=== PATIENT | male | born 1960 | race Caucasian/White ===

== ENCOUNTER → 2017-10-27 15:56 | Outpatient (CLI) | payer OTHER, SELFPAY ==
[2017-10-27 17:40] LABS: AST(SGOT) 12 U/L (15-37); Alanine Aminotransfer ALT/SGPT 23 U/L (16-61); Albumin, Serum 3.6 g/dL (3.2-5.0); Alkaline Phosphatase 87 U/L (45-117); Anion Gap 6 (5-15); BUN 10 mg/dL (7-18); BUN/Creat Ratio 13.5 RATIO (10-20); Chloride 104 mmol/L (98-107); Creatinine, Serum 0.74 mg/dL (0.70-1.30); EST Glomerular Filtration Rate 116 mL/min (>60); Est Glom Filt Rate - Afr Amer 140 mL/min (>60); Globulin 3.5 g/dL (2.2-4.2); Glucose 119 mg/dL (74-106); Potassium 3.5 mmol/L (3.5-5.1); Protein, Total 7.1 g/dL (6.4-8.2); Sodium Level 141 mmol/L (136-145)
== END ==
PROVIDERS: Family Provider Family Medicine; PCP Family Medicine; Visit Provider Nurse Practitioner
DX: E11.9 Type 2 diabetes mellitus without complications (principal)
CPT/HCPCS: 36415; 80053; 83036

== ENCOUNTER 2019-01-30 14:28 | Emergency (ER) | payer OTHER, SELFPAY ==
[2018-08-10 10:30] VITALS: BMI 29.6
[2019-01-30 14:29] VITALS: BP 131/72; PULSE 82; RESP 18; TEMP 36.6; O2SAT 98; BMI 29.2
--- NOTE | 2019-01-30 15:08 | CT_ITS ---
We are attempting to reach an attending provider to discuss findings. An addendum with communication details will be sent when the communication is complete. STUDY: CT ABDOMEN AND PELVIS WITH CONTRAST REASON FOR EXAM: Male, 58 years old. Abdomen pain and rectal bleeding RADIATION DOSAGE (If Supplied By Facility): CTDIvol = ( ) mGy, DLP = ( ) mGycm TECHNIQUE: Transaxial images were obtained from the dome of the diaphragm to the symphysis pubis without oral contrast. 100 IV Isovue 300 was administered. Sagittal and coronal images were reconstructed. Individualized dose optimization techniques were used for this CT. COMPARISON: None. FINDINGS: The visualized lung bases are unremarkable. The visualized portions of the heart are within normal limits. The liver is mildly enlarged fatty infiltrated. Normal gallbladder and extrahepatic biliary system. Normal spleen. Normal pancreas. Normal bilateral adrenal glands. Normal right kidney. Normal left kidney. There is a small hiatal hernia. There is a thick walled appearance of the stomach even though it is decompressed the wall appears thickened up to 3 cm. There is a small second part duodenal diverticulum measuring 8.9 mm at the level of the pancreas. There is moderate stool within the proximal large bowel. There is a segment of focal colonic edema. Colonic inflammation within the fat inflammation of the diverticula compatible with a focus of descending colon diverticulitis. There is a thick-walled appearance of the adjacent intra-abdominal wall fascia. The appendix is visualized and appears normal. There is trace calcification of the aorta. Normal inferior vena cava. There is small subcentimeter mesenteric and respiratory lymph nodes. The bladder is distended. The bladder measures 12 x 13 x 9 cm. Normal visualized prostate gland. There is a small umbilical hernia containing fat. There are diffuse degenerative changes of the visualized lumbar spine. CT/Abdomen/Pelvis W IV Cont ONLY IMPRESSION: Descending colon acute diverticulitis without distended abscess formation or pneumoperitoneum. This is over a segment of approximately 8 to 10 cm. Small duodenal diverticulum. Thick-walled appearance of the stomach recommend consideration for follow-up study such as endoscopy. Overdistended bladder recommend voiding or catheterization. Mild hepatic steatosis. Electronically Signed: Lisa Quezada MD at 16:29 EDT Tel , Service support ,
[2019-01-30] MEDS: Ondansetron 4 MG/2 ML Vial IV (15:17)
[2019-01-30] MEDS: 0.9% Normal Saline 1,000 ML 125 ML IV (15:17)
[2019-01-30] MEDS: Morphine 4 MG/ML Syringe IV (15:17)
[2019-01-30 15:23] LABS: Bacteria 0 SEEN /hpf (None Seen); Mucous, Urine 0 SEEN /hpf (<or=2+); Red Blood Cells-Urine 0 SEEN /hpf (0-5); White Blood Cells 0 SEEN /hpf (0-5)
[2019-01-30 15:27] LABS: Color, Urine Yellow (Yellow); Glucose, Dipstick 250 mg/dl (Normal); Ketone-Dipstick Negative (Negative); Leukocyte Esterase-Dipstick Negative /ul (Negative); Nitrite-Dipstick Negative (Negative); Occult Blood-Urine Negative /ul (Negative); Protein-Dipstick Negative (Negative); Specific Gravity, Urine 1.005 (1.002-1.030); Urine Bilirubin Dipstick Negative (Negative); Urine Clarity Sl. Cloudy (Clear); Urine Urobilinogen Normal (Normal); Urine pH 6.5 (5.0 - 8.0)
--- NOTE | 2019-01-30 15:27 | ED.DCSUM_ITS ---
- ER Visit Summary Date of Service: 01/30/19 Chief Complaint: [Rectal bleeding and abdominal pain History of Present Illness: The patient is a 58 M [presents the emergency department with abdominal pain that started this morning. Patient states that about an hour ago started having bright red blood per rectum. Patient had been having diarrhea most of the morning which she did take was too unusual because he has a history of irritable bowel syndrome. Patient continues to have left lower quadrant pain. He denies any fever. He denies urinary symptoms. Patient is never had rectal bleeding before. Patient had a colonoscopy he thinks about 3 or 4 years ago that did not show anything abnormal. Patient has a history of diabetes, GERD, and IBS. No prior abdominal surgeries. No history of diverticulosis.] Physical Examination: [HEENT-PERRLA, EOMI. Cranial nerves II through XII grossly intact. TMs clear. Mucous membranes moist. No adenopathy. Cardiovascular-regular rate and rhythm without murmur or ectopy Lungs-clear to auscultation, chest wall stable without crepitus or subcu emphysema Abdomen-normoactive bowel sounds, soft. Patient has tenderness palpation over left lower quadrant with some guarding. There is no rebound, rigidity, or perineal signs. Rectal exam-there was brown stool that was Hemoccult positive. No rectal fissures or hemorrhoids noted no rectal masses palpated. Extremities-intact ?4, normal range of motion, normal pulses, atraumatic] Test Results: [CBC with peripheral count 17.6, hemoglobin 15, hematocrit 43, placed 251. Chemistries unremarkable. Urinalysis was normal. Hemoccult was positive.] CT scan of the abdomen pelvis with IV contrast showed acute diverticulitis and some thickening of the stomach. There is no abscess or perforation noted. Emergency Department Course and Treatment: [Was ordered and morphine and Zofran on presentation and given normal saline. Patient was ordered Cipro and Flagyl IV. Patient would prefer to go home and does not want to be admitted. Discussed case with general surgeon on-call for follow-up.] Treatment Plan: [Follow-up with general surgeon in 3 to 5 days. Patient advised to return if worsening pain, fever, persistent heavy bleeding, dizziness, or conditions worsen anyway.] Disposition: [Discharged home in stable condition] Impression: [Acute diverticulitis Lower GI bleed-stable] This note was generated with Dragon dictation software. It may contain incorrect words, spelling, and punctuation that were not noted in review of the chart pr ior to signing ED Disposition - Plan for ED Patient: Referrals: Gilmer Lovett MD [Primary Care Provider] -
[2019-01-30 15:30] LABS: Absolute Lymphocyte Count 3.89 X10^3/ul (0.83-4.51); Basophil# 0.06 X10^3/uL; Basophil% 0.3 % (0-1); Eosinophils% 1.7 % (0-5); Hematocrit 43.1 % (40-54); Hemoglobin 15.1 g/dl (13.0-16.5); Lymphocyte # 3.89 X10^3/ul (4.0); Lymphocyte % 22.1 % (19-41); Mean Corpuscular Hgb 30.8 pg (27.0-32.0); Mean Platelet Vol. 10.4 fl (6.2-12.0); Monocyte# 1.31 X10^3/uL; Monocyte% 7.5 % (0-10); Neutrophil # 11.96 X10^3/uL (2.7-7.7); Neutrophil % 68.1 % (47-70); Platelet Count 251 K/mm3 (150-450); RBC Distribution Width SD 41.7 fl (35.1-43.9); White Blood Count 17.6 K/mm3 (4.4-11.0)
[2019-01-30 15:32] LABS: POSITIVE COUNT NO; POSITIVE DIFFERENTIAL NO; POSITIVE MORPHOLOGY NO
[2019-01-30 15:34] LABS: Anion Gap 6 (5-15); BUN 10 mg/dL (7-18); BUN/Creat Ratio 10.5 RATIO (10-20); Chloride 101 mmol/L (98-107); Creatinine, Serum 0.95 mg/dL (0.70-1.30); EST Glomerular Filtration Rate 86 mL/min (>60); Est Glom Filt Rate - Afr Amer 104 mL/min (>60); Estimated Creatinine Clearance 90.27 ml/min; Glucose 242 mg/dL (74-106); Potassium 3.6 mmol/L (3.5-5.1); Sodium Level 135 mmol/L (136-145)
[2019-01-30 15:40] LABS: Squamous Epithelial Cells - UA 0-5 SEEN /hpf (0-5)
[2019-01-30 16:12] LABS: Lactic Acid 1.3 mmol/L (0.4-2.0)
[2019-01-30 16:13] VITALS: PULSE 84; RESP 18; O2SAT 97
--- NOTE | 2019-01-30 16:58 | ED.DEP ---
ED Disposition - Plan for ED Patient: Instructions: ED Hematochezia Stable, ED Diverticulitis Prescriptions: Hydrocodone Bitart/Apap 5-325 [[place] 5MG-325MG] 1 tab PO Q4H PRN PRN 2 Days #10 tab PRN Reason: Pain metroNIDAZOLE [Flagyl] 500 mg PO Q8H #30 tab Ciprofloxacin [Cipro] 500 mg PO BID #20 tab Referrals: Gilmer Lovett MD [Primary Care Provider] - Alessandro French MD [STAFF PHYSICIAN] - 3-5 Days
[2019-01-30 17:03] VITALS: BP 130/72; PULSE 88; RESP 18; O2SAT 98
[2019-01-30] MEDS: metroNIDAZOLE 500 MG/100 ML BAG 100 MG IV (17:10)
[2019-01-30] MEDS: Ciprofloxacin 400 MG/200 ML BAG 200 MG IV (18:24)
[2019-01-30 18:45] VITALS: BP 132/80; PULSE 88; RESP 18; O2SAT 99
== END 2019-01-30 19:32 | disposition home or self-care (01) ==
LOC: ED 15:13
PROVIDERS: Emergency Provider Emergency Medicine; Family Provider Family Medicine; PCP Family Medicine
DX: K57.93 Diverticulitis of intestine, part unspecified, without perforation or abscess with bleeding (principal); E11.9 Type 2 diabetes mellitus without complications; K21.9 Gastro-esophageal reflux disease without esophagitis; K58.9 Irritable bowel syndrome, unspecified; Z72.0 Tobacco use
CPT/HCPCS: 74177; 80048; 81001; 82274; 83605; 85025; 86850; 86900; 96361; 96365; 96367; 96375; 99284; J7030; J7050; Q9967; A4216; J0744; J2405

== ENCOUNTER 2019-03-22 09:50 | Day surgery (SDC) | payer OTHER, SELFPAY ==
--- NOTE | 2019-02-08 01:46 | HP_ITS ---
Intake Vital Signs 02/08/19 Body Mass Index (BMI) 29.2 02/08/19 Height 5 ft 11.75 in 02/08/19 Weight: 209 lb 2 oz 02/08/19 Body Mass Index (BMI) 28.5 02/08/19 Blood Pressure 112/63 02/08/19 Blood Pressure Location Rt brachial 02/08/19 Respiratory Rate 16 02/08/19 Pulse Rate 79 02/08/19 Pulse Source Monitor 02/08/19 Temperature 98.2 F 02/08/19 Pulse Ox 97 02/08/19 Oxygen Delivery Method room air Intake Visit Reasons: DIVERTICULITIS Hazardous Waste Management Specialist Required: No Accompanied by: Is patient in pain?: No Allergies No Known Allergies Allergy (Verified 01/30/19 14:31) Medications aspirin 81 mg tablet,delayed release 81 mg PO QDAY 09/14/17 [History Confirmed 02/08/19] multivit with minerals-folic acid-lycopene 0.4 mg-600 mcg tablet 1 tab PO DAILY 09/14/17 [History Confirmed 02/08/19] omega-3 fatty acids 1,000 mg capsule 1,000 mg PO QDAY 09/14/17 [History Confirmed 02/08/19] sitagliptin 100 mg tablet 100 mg PO DAILY #30 tab 08/10/18 [Rx Confirmed 02/08/19] Ciprofloxacin [Cipro] 500 mg PO BID #20 tab 01/30/19 [Rx Confirmed 02/08/19] Colestipol Tablet [Colestid Tablet] 2 gm PO BID 01/30/19 [History Confirmed 02/08/19] Ezetimibe [Zetia] 10 mg PO DAILY 01/30/19 [History Confirmed 02/08/19] Insulin Glargine,Hum.rec.anlog [Basaglar Kwikpen U-100] 60 unit SQ QHS 01/30/19 [History Confirmed 02/08/19] Lisinopril [Zestril] 2.5 mg PO DAILY 01/30/19 [History Confirmed 02/08/19] Omeprazole 40 mg PO DAILY 01/30/19 [History Confirmed 02/08/19] metroNIDAZOLE [Flagyl] 500 mg PO Q8H #30 tab 01/30/19 [Rx Confirmed 02/08/19] cholecalciferol (vitamin D3) 2,000 unit tablet 2,000 unit PO DAILY 02/08/19 [History Confirmed 02/08/19] [facility] Medical History (Updated 02/08/19 @ 13:43 by Alessandro French MD) Diabetes type 2, controlled (Acute) Erectile dysfunction (Acute) GERD (gastroesophageal reflux disease) (Acute) IBS (irritable bowel syndrome) (Acute) Vision impairment (Acute) Surgical History (Updated 10/27/17 @ 15:05 by Gregoria Matute) endoscopy with dilation of esophagus (Acute) Family History (Updated 02/08/19 @ 13:10 by Snowamairani Smith) Unknown Diabetes Father Diabetes CVA (cerebral vascular accident) Mother Diabetes Sister Breast cancer Social History (Updated 02/08/19 @ 13:46 by Alessandro French MD) Smoking Status: Former smoker second hand exposure: No alcohol intake: never substance use type: does not use HPI HPI HPI: MELISSA MORFIN, is a 58 M who presents to the office today for HPI HPI Surgical H&P: Yes HPI: MELISSA MORFIN, is a 58 M who presents to the office today for diverticulitis. The patient was recently in the emergency room with a white count of 17 and left lower quadrant pain of one day duration. This subsided once he started on antibiotics. He is having no pain at this time. His pain was in the left lower quadrant. On CT scan he also had moderate thickening of the stomach. He has no epigastric pain. ROS General General: Yes fatigue; no weight change, appetite, colon cancer, breast cancer or weakness HEENT HEENT: No difficulty swallowing, eye injury, eye surgery, swollen glands or hoarseness Endo Endocrine: Yes diabetes mellitus; no thyroid disease, thyroid cancer, Hair loss, heat intolerance or cold intolerance Skin Skin: No rash or changing moles Musc Musculoskeletal: No back problems, arthritis, rheumatoid arthritis, gout or joint pain Cardio Cardiovascular: No murmur, pacemaker, heart disease, atrial fibrillation, high blood pressure, heart attack, heart stent, palpitations, shortness of breat with exertion or chest pain Psych Psychiatric: No depression, anxiety or hearing voices Resp Respiratory: No shortness of breath, No sleep apnea, No cough, No COPD, No asthma, No emphysema, No wheezing Gastro Gastrointestinal: No abdominal pain, No nausea or vomiting, Yes diarrhea, No constipation, Yes blood in stool, Yes acid reflux, No hemorrhoids, No ulcers, No gallbladder problem, No black,tarry stools Domingo Hematologic: No blood thinners, No blood disorders, No bleeding, No anemia, No blood clots Neuro Neurologic: No system reviewed and no additional complaints, except as docu, No as per HPI, No abnormal walking, No abnormal hearing, No abnormal movements, No abnormal speech, No behavioral changes, No burning sensations, No confusion, No seizure-like activity, No unsteadiness, No dizziness, No localized weakness, No frequent falls, No headache(s), No lack of coordination, No loss of vision, No memory loss, No numbness, No other visual disturbances, No radiating pain, No restless legs, No sensory deficit, No fainting, No tingling, No tremor(s), No weakness, No other Exam Const General: cooperative Orientation: alert, oriented x3 Resp Effort & Inspection: normal respiratory effort Auscultation: clear to auscultation bilaterally Cardio Rate: regular rate Rhythm: regular rhythm Heart Sounds: no murmurs GI Inspection: non-distended Palpation: soft, nontender Assessment & Plan Problems 1. Gastric wall thickening K31.89 2. Diverticular disease K57.90 Plan The patient has moderate thickening of the stomach wall. I will perform an EGD while I perform the colonoscopy Patient has diverticulitis. Her last colonoscopy was 4 years ago. He also had blood in his stool. I recommend colonoscopy once this has healed. I explained endoscopy in detail to the patient. I explained the risks including but not limited to stroke or heart attack with anesthesia, perforation of the GI tract, bleeding, infection. I explained that any of these could necessitate further emergency surgery. The patient understands and all questions were answered sufficiently. The patient wishes to proceed with procedure. Alessandro French MD Pager: [facility] [address] [place] [address], [address] [place] [address] Office: Orders Orders: Colonoscopy Today K57.90 EGD Today K31.89 Coding Level of Care Code Off vis,new,level 3 Diagnoses Gastric wall thickening K31.89 Diverticular disease K57.90 02/08/19 5114 <Electronically signed by Alessandro mariscal MD> Date _ Alessandro HUGGINS I have re-examined the patient. There are no clinical changes since date of exam.
[2019-02-08 13:18] VITALS: BMI 29.2
[2019-03-22] VITALS (9 sets, daily range): BP systolic 82–128; BP diastolic 60–75; PULSE 58–62; RESP 16–18; TEMP 36.2–36.4; O2SAT 92–98; BMI 27.8
--- NOTE | 2019-03-22 09:58 | HP_ITS ---
Intake Vital Signs 02/08/19 Body Mass Index (BMI) 29.2 02/08/19 Height 5 ft 11.75 in 02/08/19 Weight: 209 lb 2 oz 02/08/19 Body Mass Index (BMI) 28.5 02/08/19 Blood Pressure 112/63 02/08/19 Blood Pressure Location Rt brachial 02/08/19 Respiratory Rate 16 02/08/19 Pulse Rate 79 02/08/19 Pulse Source Monitor 02/08/19 Temperature 98.2 F 02/08/19 Pulse Ox 97 02/08/19 Oxygen Delivery Method room air Intake Visit Reasons: DIVERTICULITIS Staff Certified Nurse Midwife Required: No Accompanied by: Is patient in pain?: No Allergies No Known Allergies Allergy (Verified 01/30/19 14:31) Medications aspirin 81 mg tablet,delayed release 81 mg PO QDAY 09/14/17 [History Confirmed 02/08/19] multivit with minerals-folic acid-lycopene 0.4 mg-600 mcg tablet 1 tab PO DAILY 09/14/17 [History Confirmed 02/08/19] omega-3 fatty acids 1,000 mg capsule 1,000 mg PO QDAY 09/14/17 [History Confirmed 02/08/19] sitagliptin 100 mg tablet 100 mg PO DAILY #30 tab 08/10/18 [Rx Confirmed 02/08/19] Ciprofloxacin [Cipro] 500 mg PO BID #20 tab 01/30/19 [Rx Confirmed 02/08/19] Colestipol Tablet [Colestid Tablet] 2 gm PO BID 01/30/19 [History Confirmed 02/08/19] Ezetimibe [Zetia] 10 mg PO DAILY 01/30/19 [History Confirmed 02/08/19] Insulin Glargine,Hum.rec.anlog [Basaglar Kwikpen U-100] 60 unit SQ QHS 01/30/19 [History Confirmed 02/08/19] Lisinopril [Zestril] 2.5 mg PO DAILY 01/30/19 [History Confirmed 02/08/19] Omeprazole 40 mg PO DAILY 01/30/19 [History Confirmed 02/08/19] metroNIDAZOLE [Flagyl] 500 mg PO Q8H #30 tab 01/30/19 [Rx Confirmed 02/08/19] cholecalciferol (vitamin D3) 2,000 unit tablet 2,000 unit PO DAILY 02/08/19 [History Confirmed 02/08/19] [facility] Medical History (Updated 02/08/19 @ 13:43 by Alessandro French MD) Diabetes type 2, controlled (Acute) Erectile dysfunction (Acute) GERD (gastroesophageal reflux disease) (Acute) IBS (irritable bowel syndrome) (Acute) Vision impairment (Acute) Surgical History (Updated 10/27/17 @ 15:05 by Gregoria Matute) endoscopy with dilation of esophagus (Acute) Family History (Updated 02/08/19 @ 13:10 by Snowamairani Smith) Unknown Diabetes Father Diabetes CVA (cerebral vascular accident) Mother Diabetes Sister Breast cancer Social History (Updated 02/08/19 @ 13:46 by Alessandro French MD) Smoking Status: Former smoker second hand exposure: No alcohol intake: never substance use type: does not use HPI HPI HPI: MELISSA MORFIN, is a 58 M who presents to the office today for HPI HPI Surgical H&P: Yes HPI: MELISSA MORFIN, is a 58 M who presents to the office today for diverticulitis. The patient was recently in the emergency room with a white count of 17 and left lower quadrant pain of one day duration. This subsided once he started on antibiotics. He is having no pain at this time. His pain was in the left lower quadrant. On CT scan he also had moderate thickening of the stomach. He has no epigastric pain. ROS General General: Yes fatigue; no weight change, appetite, colon cancer, breast cancer or weakness HEENT HEENT: No difficulty swallowing, eye injury, eye surgery, swollen glands or hoarseness Endo Endocrine: Yes diabetes mellitus; no thyroid disease, thyroid cancer, Hair loss, heat intolerance or cold intolerance Skin Skin: No rash or changing moles Musc Musculoskeletal: No back problems, arthritis, rheumatoid arthritis, gout or joint pain Cardio Cardiovascular: No murmur, pacemaker, heart disease, atrial fibrillation, high blood pressure, heart attack, heart stent, palpitations, shortness of breat with exertion or chest pain Psych Psychiatric: No depression, anxiety or hearing voices Resp Respiratory: No shortness of breath, No sleep apnea, No cough, No COPD, No asthma, No emphysema, No wheezing Gastro Gastrointestinal: No abdominal pain, No nausea or vomiting, Yes diarrhea, No constipation, Yes blood in stool, Yes acid reflux, No hemorrhoids, No ulcers, No gallbladder problem, No black,tarry stools Domingo Hematologic: No blood thinners, No blood disorders, No bleeding, No anemia, No blood clots Neuro Neurologic: No system reviewed and no additional complaints, except as docu, No as per HPI, No abnormal walking, No abnormal hearing, No abnormal movements, No abnormal speech, No behavioral changes, No burning sensations, No confusion, No seizure-like activity, No unsteadiness, No dizziness, No localized weakness, No frequent falls, No headache(s), No lack of coordination, No loss of vision, No memory loss, No numbness, No other visual disturbances, No radiating pain, No restless legs, No sensory deficit, No fainting, No tingling, No tremor(s), No weakness, No other Exam Const General: cooperative Orientation: alert, oriented x3 Resp Effort & Inspection: normal respiratory effort Auscultation: clear to auscultation bilaterally Cardio Rate: regular rate Rhythm: regular rhythm Heart Sounds: no murmurs GI Inspection: non-distended Palpation: soft, nontender Assessment & Plan Problems 1. Gastric wall thickening K31.89 2. Diverticular disease K57.90 Plan The patient has moderate thickening of the stomach wall. I will perform an EGD while I perform the colonoscopy Patient has diverticulitis. Her last colonoscopy was 4 years ago. He also had blood in his stool. I recommend colonoscopy once this has healed. I explained endoscopy in detail to the patient. I explained the risks including but not limited to stroke or heart attack with anesthesia, perforation of the GI tract, bleeding, infection. I explained that any of these could necessitate further emergency surgery. The patient understands and all questions were answered sufficiently. The patient wishes to proceed with procedure. Alessandro French MD Pager: [facility] [address] [place] [address], [address] [place] [address] Office: Orders Orders: Colonoscopy Today K57.90 EGD Today K31.89 Coding Level of Care Code Off vis,new,level 3 Diagnoses Gastric wall thickening K31.89 Diverticular disease K57.90
[2019-03-22 10:26] LABS: Bedside Glucose 149 mg/dL (70-110)
--- NOTE | 2019-03-22 11:00 | COLBX_PTH ---
PATIENT: MELISSA MORFIN III LOC: EN U#:[id number] AGE/SX: 58/M ROOM: RE03/22/[address]: Dr. Alessandro French MD : 1960 BED: DIS: 03/22/2019 SPEC #: [id number] RECD: 03/22/19 11:23 STATUS: MUNDO EMMANUEL #: [id number] MIKEL: 03/22/19 11:[address]: Alessandro French DEPT: SURGICAL PATHOLOGY RECD BY: Dean Weaver ENTERED: 03/22/19 12:37 SP TYPE: COLON BX OTHR DR: Dr. Gilmer Lovett MD Tissues: Descending colon Procedures: Surgery Specimen Level IV HEADER OPERATION: [place] DIAGNOSIS: Gastric wall thickening, diverticular disease TISSUE SUBMITTED: Descending colon polyp MICROSCOPIC DIAGNOSIS Descending colon polyp, biopsy: Fragments of tubular adenoma. SJ:nakul 03/23/19 MICROSCOPIC DESCRIPTION Slides are reviewed. GROSS DESCRIPTION Received in fixative is one container labeled with the patient's name and designated descending colon polyp. The specimen consists of two irregular fragments of gallardo soft tissue that in aggregate measure 0.5 x 0.3 x 0.2 cm. The specimen is totally submitted in one cassette. / SJ:nakul 03/22/19 TC:1 CPT: 45081
--- NOTE | 2019-03-22 11:04 | OP.ENDO_ITS ---
03/22/2019 Gilmer Lovett Re : Upper GI endoscopy procedure for Jeff Sanchez Dear Rachell This procedure was performed on Friday, March 22, 2019. My impressions and recommendations are as follows: Impressions : - Normal esophagus. - Normal stomach. - Normal examined duodenum. - No specimens collected. Recommendations : - Discharge patient to home. - Resume previous diet. - Continue present medications. My findings are described in the full procedure note, which is enclosed. If I can be of further assistance, please feel free to contact me at Doctor phone number(s): , Work: . Sincerely, Alessandro French MD 03/22/2019 11:03:44 AM This report has been signed electronically.
--- NOTE | 2019-03-22 11:06 | OP.ENDO_ITS ---
03/22/2019 Gilmer Lovett Re : Colonoscopy procedure for Jeff Riversr Rachell This procedure was performed on Friday, March 22, 2019. My impressions and recommendations are as follows: Impressions : - One small polyp in the distal descending colon, removed with a hot snare. Resected and retrieved. - The examination was otherwise normal on direct and retroflexion views. Recommendations : - Discharge patient to home. - Resume previous diet. - Continue present medications. - Physician's office will call you with pathology results and recommendations for when to repeat colonoscopy. - Repeat colonoscopy date to be determined after pending pathology results are reviewed for surveillance based on pathology results. My findings are described in the full procedure note, which is enclosed. If I can be of further assistance, please feel free to contact me at Doctor phone number(s): , Work: . Sincerely, Alessandro French MD 03/22/2019 11:06:03 AM This report has been signed electronically.
== END 2019-03-22 12:03 | disposition home or self-care (01) ==
LOC: EN 09:53 → AC 09:54
PROVIDERS: Family Provider Family Medicine; PCP Family Medicine; Referring Provider Family Medicine; Visit Provider Surgery
PROC: 0DJD8ZZ Inspection of Lower Intestinal Tract, Via Natural or Artificial Opening Endoscopic (ICD-10-PCS; CPT 45378; principal; 2019-03-22 10:55)
DX: D12.4 Benign neoplasm of descending colon (principal); K57.32 Diverticulitis of large intestine without perforation or abscess without bleeding; K31.89 Other diseases of stomach and duodenum; K57.90 Diverticulosis of intestine, part unspecified, without perforation or abscess without bleeding; Z87.891 Personal history of nicotine dependence; E11.9 Type 2 diabetes mellitus without complications; K21.9 Gastro-esophageal reflux disease without esophagitis; E78.00 Pure hypercholesterolemia, unspecified; I10 Essential (primary) hypertension; K58.9 Irritable bowel syndrome, unspecified
CPT/HCPCS: 43235; 45385; 82962; 88305; J7120; J2405

== ENCOUNTER → 2020-12-02 10:00 | Outpatient (CLI) | payer OTHER, SELFPAY ==
[2020-11-27 08:26] VITALS: BMI 29.5
== END ==
PROVIDERS: PCP Internal Medicine; Referring Provider Internal Medicine; Visit Provider Internal Medicine
DX: R06.83 Snoring (principal); G47.30 Sleep apnea, unspecified
CPT/HCPCS: 95806

== ENCOUNTER → 2021-01-16 13:59 | Outpatient (CLI) | payer OTHER, SELFPAY ==
[2021-01-13 07:45] VITALS: BMI 28.8
== END ==
PROVIDERS: PCP Internal Medicine; Visit Provider Nurse Practitioner Acute Care
DX: Z46.89 Encounter for fitting and adjustment of other specified devices (principal)

== ENCOUNTER → 2021-07-09 08:49 | Outpatient (CLI) | payer OTHER, SELFPAY ==
[2021-07-09 12:39] LABS: Absolute Lymphocyte Count 3.04 X10^3/uL (0.83-4.51); Absolute Neutrophil Count 4.5 X10^3/uL (2.0-7.7); Basophil% 1.1 % (0-1); Eosinophil# 0.37 X10^3/uL; Eosinophils% 4.2 % (0-5); Hematocrit 49.1 % (40-54); Hemoglobin 16.2 g/dL (13.0-16.5); Lymphocyte # 3.04 X10^3/ul (0.83-4.51); Lymphocyte % 34.3 % (19-41); Mean Corpuscular Hgb 30.5 pg (27.0-32.0); Mean Corpuscular Volume 92.3 fL (80-94); Mean Platelet Vol. 11.4 fl (6.2-12.0); Monocyte# 0.83 X10^3/uL; Monocyte% 9.4 % (0-10); NRBC Flagged by Analyzer 0 % (0-5); Neutrophil # 4.51 X10^3/uL (2.7-7.7); Neutrophil % 50.8 % (47-70); Platelet Count 253 K/mm3 (150-450); RBC Distribution Width CV 12.5 % (11.6-14.6); RBC Distribution Width SD 42.4 fl (35.1-43.9); Red Blood Count 5.32 M/mm3 (4.6-6.2); White Blood Count 8.9 K/mm3 (4.4-11.0)
[2021-07-09 12:48] LABS: Vitamin D,25 Hydroxy 21.9 ng/mL
[2021-07-09 12:49] LABS: AST(SGOT) 10 U/L (15-37); Alanine Aminotransfer ALT/SGPT 20 U/L (16-61); Albumin, Serum 3.7 g/dL (3.2-5.0); Alkaline Phosphatase 115 U/L (45-117); Anion Gap 3 (5-15); BUN 14 mg/dL (7-18); BUN/Creat Ratio 13.7 RATIO (10-20); Calcium,Total 9.4 mg/dL (8.5-10.1); Chloride 104 mmol/L (98-107); Cholesterol 121 mg/dL (200); Creatinine, Serum 1.02 mg/dL (0.70-1.30); EST Glomerular Filtration Rate 79 mL/min (>60); Est Glom Filt Rate - Afr Amer 96 mL/min (>60); Globulin 3.7 g/dL (2.2-4.2); Glucose 145 mg/dL (74-106); High Density Lipoprotein 44 mg/dL; Potassium 4.6 mmol/L (3.5-5.1); Protein, Total 7.4 g/dL (6.4-8.2); Sodium Level 137 mmol/L (136-145); Triglycerides 73 mg/dL; Very Low Density Lipoprotein 15 mg/dL (5-40)
[2021-07-09 12:56] LABS: Hemoglobin A1c 7.4 % (3.8-5.6)
== END ==
PROVIDERS: PCP Internal Medicine; Referring Provider Internal Medicine; Visit Provider Internal Medicine
DX: E11.9 Type 2 diabetes mellitus without complications (principal); K57.90 Diverticulosis of intestine, part unspecified, without perforation or abscess without bleeding; G47.33 Obstructive sleep apnea (adult) (pediatric); Z68.28 Body mass index [BMI] 28.0-28.9, adult
CPT/HCPCS: 36415; 80053; 80061; 82306; 83036; 85025

== ENCOUNTER → 2021-07-30 16:35 | Outpatient (CLI) | payer OTHER, SELFPAY ==
--- NOTE | 2021-07-30 | IMM_PTH ---
PATIENT: MELISSA MORFIN III [facility] U#:[id number] AGE/SX: 65/M ROOM: RE07/30/[address]: Dr. Grabiel Dc MD : 1960 BED: DIS: SPEC #: [id number] RECD: 08/01/21 14:45 STATUS: MUNDO REQ #: [id number] MIKEL: 07/30/21 00:[address]: Grabiel Dc DEPT: IMMUNOHISTOCHEMISTRY RECD BY: Leeann Ambrose ENTERED: 08/01/21 14:45 SP TYPE: IMMUNO OTHR DR: Dr. Ellen Staples MD Tissues: Palate, NOS Procedures: p16 (initial) KI-67 (add) PHYSICIAN & INSTITUTION [place] [address] SPECIMEN INFORMATION: Tissue Source: Hard palate lesion Clinical Info: Hard palate lesion Specimen Number: [id number] CPT code: 84003, 48438 METHODOLOGY: Deparaffinized sections of prefer/formalin-fixed tissue or PAP/DQ stained slides are incubated with monoclonal/polyclonal antibodies/oligonucleotide probes. Localization is made via biotin free immunoperoxidase method. Appropriate controls are performed and reacted as expected. Results on target cell population are indicated in the following table: RESULTS: ANTIBODY / CLONE RESULT P16 (E6H4) negative Ki-67 (30-9) negative These tests were developed and their performance characteristics determined by [facility]. They may not have been cleared or approved by the U.S. Food and Drug Administration. The FDA has determined that such clearance or approval is not necessary. The above immunohistochemical/dualISH markers are ordered and reviewed by the Pathologist. INTERPRETATION: Hard palate lesion: No evidence of HPV change. AM:nakul 08/04/2021
--- NOTE | 2021-07-30 10:30 | LES_PTH ---
PATIENT: MELISSA MORFIN III [facility] U#:[id number] AGE/SX: 65/M ROOM: RE07/30/[address]: Dr. Grabiel Dc MD : 1960 BED: DIS: SPEC #: [id number] RECD: 07/30/21 16:00 STATUS: MUNDO EMMANUEL #: [id number] MIKEL: 07/30/21 10:[address]: Grabiel Dc DEPT: SURGICAL PATHOLOGY RECD BY: Kristen Schwab ENTERED: 07/31/21 09:11 SP TYPE: Lesion OTHR DR: Dr. Ellen Staples MD Tissues: Palate, NOS Procedures: Surgery Specimen Level IV HEADER OPERATION: Hard palate lesion PRE-OP DIAGNOSIS: Hard palate lesion TISSUE SUBMITTED: Hard palate lesion MICROSCOPIC DIAGNOSIS Lesion of hard palate, biopsy: Fragments of squamous papilloma. See comment. AM:nakul 08/01/2021 COMMENT Results from immunohistochemistry ([id number]) for surrogate HPV marker (p16) will be reported separately. MICROSCOPIC DESCRIPTION Slides are reviewed. GROSS DESCRIPTION Received in fixative is one container labeled with the patient's name and designated hard palate lesion. The specimen consists of two irregular fragments of light gallardo soft tissue that in aggregate measure 0.3 x 0.2 x <0.1 cm. The specimen is totally submitted in one cassette. / AM:nakul 07/31/21 TC:5 CPT: 50305
== END ==
PROVIDERS: PCP Internal Medicine; Visit Provider Otolaryngology
DX: D37.04 Neoplasm of uncertain behavior of the minor salivary glands (principal)
CPT/HCPCS: 88305; 88341; 88342

== ENCOUNTER 2021-11-18 10:36 | Outpatient (CLI) | payer MEDICAID, SELFPAY ==
[2021-11-18 12:18] LABS: Absolute Lymphocyte Count 2.41 X10^3/uL (0.83-4.51); Absolute Neutrophil Count 5.9 X10^3/uL (2.0-7.7); Basophil% 1.1 % (0-1); Eosinophil# 0.12 X10^3/uL; Eosinophils% 1.3 % (0-5); Hemoglobin 16.1 g/dL (13.0-16.5); Lymphocyte # 2.41 X10^3/ul (0.83-4.51); Lymphocyte % 25.9 % (19-41); Mean Corp Hgb Conc 32.9 g/dL (32-36); Mean Corpuscular Hgb 30.3 pg (27.0-32.0); Mean Corpuscular Volume 92.3 fL (80-94); Mean Platelet Vol. 10.9 fl (6.2-12.0); Monocyte# 0.76 X10^3/uL; Monocyte% 8.2 % (0-10); NRBC Flagged by Analyzer 0 % (0-5); Neutrophil % 63.3 % (47-70); Platelet Count 230 K/mm3 (150-450); RBC Distribution Width CV 12.8 % (11.6-14.6); RBC Distribution Width SD 43.5 fl (35.1-43.9); Red Blood Count 5.31 M/mm3 (4.6-6.2); White Blood Count 9.3 K/mm3 (4.4-11.0)
[2021-11-18 12:34] LABS: Vitamin D,25 Hydroxy 39.7 ng/mL
[2021-11-18 12:53] LABS: ALB/GLOB Ratio 1.1 RATIO (0.9-2.4); AST(SGOT) 12 U/L (15-37); Alanine Aminotransfer ALT/SGPT 26 U/L (16-61); Albumin, Serum 4.1 g/dL (3.2-5.0); Alkaline Phosphatase 120 U/L (45-117); Anion Gap 5 (5-15); BUN 17 mg/dL (7-18); BUN/Creat Ratio 17.7 RATIO (10-20); Calcium,Total 9.2 mg/dL (8.5-10.1); Chloride 105 mmol/L (98-107); Cholesterol 124 mg/dL (200); Creatinine, Serum 0.96 mg/dL (0.70-1.30); EST Glomerular Filtration Rate 85 mL/min (>60); Est Glom Filt Rate - Afr Amer 103 mL/min (>60); Globulin 3.6 g/dL (2.2-4.2); Glucose 141 mg/dL (74-106); High Density Lipoprotein 50 mg/dL; Magnesium 2.6 mg/dL (1.6-2.6); PSA,Total - Annual Screen 0.69 ng/mL (0.00-4.00); Potassium 4.3 mmol/L (3.5-5.1); Protein, Total 7.7 g/dL (6.4-8.2); Sodium Level 137 mmol/L (136-145); Thyroid Stim Hormone (TSH) 0.85 uIU/mL (0.358-3.74); Triglycerides 43 mg/dL; Very Low Density Lipoprotein 9 mg/dL (5-40)
[2021-11-18 13:21] LABS: Hemoglobin A1c 7.8 % (3.8-5.6)
== END 2021-11-18 23:59 | disposition home or self-care (01) ==
LOC: BIMLAB 10:37
PROVIDERS: PCP Internal Medicine; Referring Provider Internal Medicine; Visit Provider Internal Medicine
DX: E11.9 Type 2 diabetes mellitus without complications (principal); G47.33 Obstructive sleep apnea (adult) (pediatric); Z68.28 Body mass index [BMI] 28.0-28.9, adult; Z12.5 Encounter for screening for malignant neoplasm of prostate
CPT/HCPCS: 36415; 80053; 80061; 82306; 83036; 83735; 84153; 84443; 85025; G0103

== ENCOUNTER → 2022-05-06 | Outpatient (CLI) | payer MEDICAID, SELFPAY ==
[2022-05-06 15:02] LABS: Absolute Lymphocyte Count 2.95 X10^3/uL (0.83-4.51); Absolute Neutrophil Count 4.7 X10^3/uL (2.0-7.7); Basophil# 0.07 X10^3/uL; Basophil% 0.8 % (0-1); Eosinophil# 0.19 X10^3/uL; Eosinophils% 2.2 % (0-5); Hematocrit 46.5 % (40-54); Hemoglobin 15.8 g/dL (13.0-16.5); Lymphocyte # 2.95 X10^3/ul (0.83-4.51); Lymphocyte % 33.6 % (19-41); Mean Corpuscular Hgb 31.2 pg (27.0-32.0); Mean Corpuscular Volume 91.7 fL (80-94); Monocyte# 0.79 X10^3/uL; NRBC Flagged by Analyzer 0 % (0-5); Neutrophil # 4.74 X10^3/uL (2.7-7.7); Neutrophil % 54.1 % (47-70); Platelet Count 235 K/mm3 (150-450); RBC Distribution Width CV 12.4 % (11.6-14.6); RBC Distribution Width SD 41.5 fl (35.1-43.9); Red Blood Count 5.07 M/mm3 (4.6-6.2); White Blood Count 8.8 K/mm3 (4.4-11.0)
[2022-05-06 15:17] LABS: ALB/GLOB Ratio 1.1 RATIO (0.9-2.4); AST(SGOT) 18 U/L (15-37); Alanine Aminotransfer ALT/SGPT 28 U/L (16-61); Albumin, Serum 3.8 g/dL (3.2-5.0); Alkaline Phosphatase 124 U/L (45-117); Anion Gap 5 (5-15); BUN 10 mg/dL (7-18); BUN/Creat Ratio 10.2 RATIO (10-20); Calcium,Total 8.9 mg/dL (8.5-10.1); Chloride 103 mmol/L (98-107); Creatinine, Serum 0.98 mg/dL (0.70-1.30); EST Glomerular Filtration Rate 82 mL/min (>60); Est Glom Filt Rate - Afr Amer 100 mL/min (>60); Globulin 3.5 g/dL (2.2-4.2); Glucose 119 mg/dL (74-106); Potassium 4.4 mmol/L (3.5-5.1); Protein, Total 7.3 g/dL (6.4-8.2); Sodium Level 136 mmol/L (136-145)
== END | disposition home or self-care (01) ==
LOC: BIMLAB 13:02
PROVIDERS: PCP Internal Medicine; Referring Provider Internal Medicine; Visit Provider Internal Medicine
DX: E11.9 Type 2 diabetes mellitus without complications (principal); E78.5 Hyperlipidemia, unspecified
CPT/HCPCS: 36415; 80053; 85025

== ENCOUNTER → 2022-06-01 | Outpatient (CLI) | payer MEDICAID, SELFPAY ==
--- NOTE | 2022-06-02 12:32 | EKG12_ITS ---
Test Reason : PRE OP Blood Pressure : / mmHG Vent. Rate : 080 BPM Atrial Rate : 080 BPM P-R Int : 164 ms QRS Dur : 096 ms QT Int : 376 ms P-R-T Axes : 047 077 004 degrees QTc Int : 433 ms Normal sinus rhythm T wave abnormality, consider inferior ischemia Abnormal ECG Confirmed by LORRIE HUGGINS, EUFEMIA ([id number]), restaurant expeditor CECILIO JUNIOR ([id number]) on 06/04/2022 2:08:47 P M Referred By: Grabiel Dc Confirmed By:PAUL ANDREW MD
== END | disposition home or self-care (01) ==
LOC: PAT 06-30 11:57
PROVIDERS: PCP Internal Medicine; Referring Provider Otolaryngology; Visit Provider Otolaryngology
DX: Z01.810 Encounter for preprocedural cardiovascular examination (principal); R94.31 Abnormal electrocardiogram [ECG] [EKG]
CPT/HCPCS: 93005

== ENCOUNTER → 2022-07-07 | Outpatient (CLI) | payer MEDICAID, SELFPAY ==
--- NOTE | 2022-07-07 09:35 | STEWCON_ITS ---
Reason For Study: Abnormal EKG Stress Results Protocol: Jose Protocol WITH DEFINITY Maximum Predicted HR: 158 bpm Target HR: 134 bpm % Maximum Predicted HR: 82 % DurationHeart Rate Stage (mm:ss) (bpm) BP Comment Baseline 58 108/64No Chest Pain; 5 ML Diluted Definity Jose Protocol Stage I 3:00 90 112/60No Chest Pain Jose Protocol Stage II 3:00 102 126/58No Chest Pain Jose Protocol Stage III 3:00 127 134/52No Chest Pain Jose Protocol Stage IV 0:15 130 / Recovery 72 112/64No Chest Pain Stress Duration: 9:15 mm:ss Maximum Stress HR: 130 bpm METS: 10 Baseline Echocardiogram Findings Stress Echo Wall motion Data Resting WM Intermediate WM Stress WM MMode/2D Measurements & Calculations LVOT diam: 2.0 cm LVOT area: 3.1 cm2 Doppler Measurements & Calculations Ao V2 max: 217.0 cm/sec LV V1 max: 99.9 cm/sec SV(LVOT): 72.1 ml Ao max P.8 mmHg LV V1 max P.0 mmHg Ao V2 mean: 152.5 cm/sec LV V1 mean P.3 mmHg Ao mean P.5 mmHg LV V1 mean: 70.6 cm/sec Ao V2 VTI: 47.6 cm LV V1 VTI: 23.6 cm PATSY(I,D): 1.5 cm2 PATSY(V,D): 1.4 cm2 TR max daniela: 196.2 cm/sec TR max P.4 mmHg ECHO/Stress Test Echo W/Contrast Interpretation Summary Exercise stress echocardiogram. 62-year-old man with a history of chest pain. Stress protocol: Resting KG demonstrates sinus bradycardia with a rate of 58 bpm normal interval s are noted resting blood pressure is 108/64 mmHg. The patient exercised according to the regular B ruce protocol for total duration of 9 minutes and 15 seconds. Patient completed 15 seconds into s tage IV of the Jose protocol. The maximum heart rate attained was 142 bpm which was 89% of max impa cted heart rate the maximum workload was 10.8 metabolic equivalents. At rest there were no ST or T wave changes noted to suggest ischemia and at peak exercise upsloping ST changes were noted with did not meet the criteria for ischemia. No clinical angina was noted the test was terminated due to the t arget heart rate being achieved. The peak blood pressure was 134/52 mmHg. Exercise stress echocardiogram. Stress and resting echocardiographic images were performed with Definity enhanc ement. There was normal perfusion noted at rest and with peak exercise there was thickening of a ll the maria and reduction of low ventricular cavity size peaking of ejection fraction at approx imately 70%. The resting ejection fraction was 55%. Conclusion: Normal exercise myocardial perfusion stress test with Definity enhancement at a high workload. No clinical angina noted. Ordering Physician: Ellen Staples Referring Physician: Ellen Staples Performed By: Lazaro Santillan RCS
== END | disposition home or self-care (01) ==
LOC: CVS 09:34
PROVIDERS: PCP Internal Medicine; Visit Provider Internal Medicine
DX: R94.31 Abnormal electrocardiogram [ECG] [EKG] (principal)
CPT/HCPCS: 93017; 93350; Q9957; A4216; C8928

== ENCOUNTER 2022-10-26 09:48 | Day surgery (SDC) | payer MEDICAID, SELFPAY ==
[2022-10-26 10:11] VITALS: BP 102/72; PULSE 62; RESP 18; TEMP 36.3; O2SAT 99; BMI 28.2
[2022-10-26 10:15] LABS: Hematocrit 48.6 % (40-54); Hemoglobin 16.2 g/dL (13.0-16.5); Mean Corp Hgb Conc 33.3 g/dL (32-36); Mean Corpuscular Hgb 30.9 pg (27.0-32.0); Mean Corpuscular Volume 92.7 fL (80-94); Mean Platelet Vol. 10.5 fl (6.2-12.0); Platelet Count 233 K/mm3 (150-450); RBC Distribution Width CV 12.2 % (11.6-14.6); RBC Distribution Width SD 42.2 fl (35.1-43.9); Red Blood Count 5.24 M/mm3 (4.6-6.2); White Blood Count 11.6 K/mm3 (4.4-11.0)
[2022-10-26] MEDS: Lactated Ringers 1,000 ML 15 ML IV (10:17)
[2022-10-26 10:28] LABS: Anion Gap 5 (5-15); BUN 13 mg/dL (7-18); BUN/Creat Ratio 13.5 RATIO (10-20); Calcium,Total 9.2 mg/dL (8.5-10.1); Chloride 105 mmol/L (98-107); Creatinine, Serum 0.96 mg/dL (0.70-1.30); EST Glomerular Filtration Rate 84 mL/min (>60); Est Glom Filt Rate - Afr Amer 102 mL/min (>60); Estimated Creatinine Clearance 84.97 ml/min; Glucose 167 mg/dL (74-106); Potassium 4.2 mmol/L (3.5-5.1); Sodium Level 138 mmol/L (136-145)
[2022-10-26 10:40] LABS: Bedside Glucose 160 mg/dL (74-106)
--- NOTE | 2022-10-26 11:01 | DS.PCM_ITS ---
Providers Primary Care Physician: Dr. Ellen Staples MD Reason For Visit: EXCISION HARD PALATE LESION Medications at Discharge Home Medications multivit with minerals-folic acid-lycopene 0.4 mg-600 mcg tablet (Men's Daily Multivitamin-Mineral) 1 tab PO DAILY 09/14/17 omega-3 fatty acids 1,000 mg capsule (Fish Oil Concentrate) 1,200 mg PO QDAY 09/14/17 cholecalciferol (vitamin D3) 50 mcg (2,000 unit) tablet 2,000 unit PO DAILY 02/08/19 atorvastatin 40 mg tablet 40 mg PO QHS #90 tabs 05/06/22 blood sugar diagnostic (Human[employer] PerformanceTouch Verio test strips) #100 ea 05/06/22 dapagliflozin 5 mg tablet (Farxiga) 5 mg PO DAILY #90 tabs 05/06/22 lisinopril 2.5 mg tablet 2.5 mg PO DAILY #90 tabs 05/06/22 insulin NPH isoph U-100 human 100 unit/mL subcutaneous suspension (Novolin N NPH U-100 Insulin isophane) 16 unit subcut BID 10/19/22 Weight / BMI Weight Weight: 91.8 kg Body Mass Index (BMI) 28.2 ABG / Lab / Microbiology Data Result Diagrams: 10/26/22 10:10 10/26/22 10:10 Laboratory: Laboratory Results - last 24 hr 10/26/22 10:08: POC Glucose 160 H 10/26/22 10:10: WBC 11.6 H, RBC 5.24, Hgb 16.2, Hct 48.6, MCV 92.7, MCH 30.9, MCHC 33.3, RDW Std Deviation 42.2, RDW Coeff of Agustin 12.2, Plt Count 233, MPV 10.5 10/26/22 10:10: Sodium 138, Potassium 4.2, Chloride 105, Carbon Dioxide 28.0, Anion Gap 5, BUN 13, Creatinine 0.96, Estim Creat Clear Calc 84.97, Est GFR (MDRD) Af Amer 102, Est GFR (MDRD) Non-Af 84, BUN/Creatinine Ratio 13.5, Glucose 167 H, Calcium 9.2 D/C Instructions Discharge Diet: Soft diet Discharge Activity: Return to Normal Activity Please Follow Up With: Grabiel Dc MD When: 2-3 weeks Meaningful Use Info Meaningful Use Diagnoses (Choose all that apply): None applicable Discharge Plan Admission Attending Provider: Grabiel Dc Primary Care Provider: Ellen Staples Discharge Orders/Prescriptions Prescriptions: No Action omega-3 fatty acids [Fish Oil Concentrate] 1,000 mg capsule 1,200 mg PO QDAY multivit with [id number] [Men's Daily Multivit-Mineral] 0.4-600 mg-mcg tablet 1 tab PO DAILY cholecalciferol (vitamin D3) 2,000 unit tablet 2,000 unit PO DAILY Novolin N NPH U-100 Insulin 100 unit/mL suspension 16 unit subcut BID Rx Instructions: plus sliding scale 200-250 4 units 251-300 5 units 301-350 6 units lisinopril 2.5 mg tablet 2.5 mg PO DAILY Qty: 90 3RF Farxiga 5 mg tablet 5 mg PO DAILY Qty: 90 3RF atorvastatin 40 mg tablet 40 mg PO QHS Qty: 90 3RF (DME) OneTouch Verio test strips Strip See Rx Instructions .ROUTE .MEDSUPPLY Qty: 100 5RF Rx Instructions: Test blood sugar 3 times daily as directed Referrals / Follow Up: Ellen Staples MD [Primary Care Provider] - Disposition Disposition (needs filled in before D/C Order can be placed): Home, Self Care
--- NOTE | 2022-10-26 11:26 | PCM.OPRPT ---
Report of Operation Date of Procedure: 10/26/22 Pre-Operative Diagnosis: hard palate mass Post-Operative Diagnosis: same Surgery/Procedure Performed:: Excision hard palate mass Surgeon: Grabiel Dc Type of Anesthesia: General Anesthesiologist: Zhen Nuñez Estimated Blood Loss (mL): minimal Description of Procedure: The patient was taken to the operating room on 10/26/2022. He was placed in the supine position on the operating room table. He was given sufficient general anesthesia. The table was turned 90 degrees in a clockwise fashion. A Allen mouthgag was inserted into the patient's mouth. The patient was suspended on a Bates stand. 1% lidocaine with epinephrine was injected into the mucosa surrounding the lesion. After sufficient vasoconstriction, the lesion was excised with a 15 blade. Sharp dissection was used to remove the specimen in its entirety. It was sent to pathology for permanent section. Hemostasis was achieved with suction cautery. The procedure was then terminated. The patient was then awoken and brought to the recovery room in stable condition. Blood loss minimal, replacement none. Sponge, needle, and instrument count were correct at the end of the procedure.
--- NOTE | 2022-10-26 11:35 | LES_PTH ---
PATIENT: MELISSA MORFIN III LOC: [facility] [place] U#:[id number] AGE/SX: 62/M ROOM: RE10/26/[address]: Dr. Grabiel Dc MD : 1960 BED: DIS: 10/26/2022 SPEC #: [id number] RECD: 10/26/22 12:20 STATUS: MUNDO LEOSLucero #: [id number] MIKEL: 10/26/22 11:[address]: Grabiel Dc DEPT: SURGICAL PATHOLOGY RECD BY: Kristen Schwab ENTERED: 10/26/22 12:40 SP TYPE: Lesion OTHR DR: Dr. 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 Focal mucosal denudation. Mild chronic inflammation. Salivary gland tissue with mild duct ectasia. No evidence of malignancy. See comment. AM:nakul 10/27/2022 COMMENT GMS stain with matched control was used in the evaluation of this case. Case has been reviewed in consultation with Dr. Eason who concurs with the above diagnosis. IDC:[email or web address] MICROSCOPIC DESCRIPTION Slides are reviewed. GROSS DESCRIPTION Received in fixative is one container labeled with the patient's name and designated hard palate lesion. The specimen consists of a piece of gallardo mucosal tissue measuring 0.5 x 0.5 x 0.2 cm. The specimen is inked, bisected and submitted entirely in one cassette. / ZULMA:nakul 10/26/2022 TC:3 CPT: 91269, 51460
[2022-10-26] MEDS: Lidocaine 1% /Epi 1:100 (20ml) 20 ML Vial (11:39)
[2022-10-26 12:04] VITALS: BP 100/67; BP 102/72; PULSE 62; RESP 18; TEMP 36.4; O2SAT 94
[2022-10-26 12:15] VITALS: BP 102/72; BP 99/62; PULSE 62; RESP 18; O2SAT 93
[2022-10-26 12:25] LABS: Bedside Glucose 143 mg/dL (74-106)
[2022-10-26 12:29] VITALS: BP 102/72; BP 94/66; PULSE 64; RESP 18; TEMP 36.2; O2SAT 94
== END 2022-10-26 13:13 | disposition home or self-care (01) ==
LOC: SDC 09:50 → AC 09:51
PROVIDERS: PCP Internal Medicine; Referring Provider Otolaryngology; Visit Provider Otolaryngology
PROC: (CPT 42106; principal; 2022-10-26 11:20)
DX: D37.04 Neoplasm of uncertain behavior of the minor salivary glands (principal); E11.9 Type 2 diabetes mellitus without complications; K21.9 Gastro-esophageal reflux disease without esophagitis; Z87.891 Personal history of nicotine dependence; E78.5 Hyperlipidemia, unspecified; G47.33 Obstructive sleep apnea (adult) (pediatric)
CPT/HCPCS: 42106; 00170; 80048; 82962; 85027; 88305; 88312; J7120; J2405

== ENCOUNTER → 2022-11-19 | Outpatient (CLI) | payer MEDICAID, SELFPAY ==
[2022-11-19 13:04] LABS: Cholesterol 141 mg/dL (200); High Density Lipoprotein 49 mg/dL; Triglycerides 131 mg/dL; Very Low Density Lipoprotein 26 mg/dL (5-40)
[2022-11-19 13:06] LABS: Vitamin D,25 Hydroxy 47.6 ng/mL
[2022-11-19 13:14] LABS: Hemoglobin A1c 8.2 % (3.8-5.6)
== END | disposition home or self-care (01) ==
LOC: BIMLAB 09:14
PROVIDERS: PCP Internal Medicine; Visit Provider Internal Medicine
DX: E11.9 Type 2 diabetes mellitus without complications (principal); Z13.220 Encounter for screening for lipoid disorders; Z12.5 Encounter for screening for malignant neoplasm of prostate; E55.9 Vitamin D deficiency, unspecified
CPT/HCPCS: 36415; 80061; 82306; 83036; 84153; G0103

== ENCOUNTER → 2023-05-20 | Outpatient (CLI) | payer MEDICAID, SELFPAY ==
[2023-05-20 11:59] LABS: Absolute Lymphocyte Count 2.79 X10^3/uL (0.83-4.51); Absolute Neutrophil Count 6.8 X10^3/uL (2.0-7.7); Basophil# 0.09 X10^3/uL; Basophil% 0.8 % (0-1); Eosinophil# 0.22 X10^3/uL; Hemoglobin 16.6 g/dL (13.0-16.5); Lymphocyte # 2.79 X10^3/ul (0.83-4.51); Lymphocyte % 25.2 % (19-41); Mean Corp Hgb Conc 33.2 g/dL (32-36); Mean Corpuscular Hgb 30.9 pg (27.0-32.0); Mean Corpuscular Volume 93.1 fL (80-94); Mean Platelet Vol. 11.3 fl (6.2-12.0); Monocyte# 0.93 X10^3/uL; Monocyte% 8.4 % (0-10); NRBC Flagged by Analyzer 0 % (0-5); Neutrophil # 6.82 X10^3/uL (2.7-7.7); Neutrophil % 61.6 % (47-70); Platelet Count 220 K/mm3 (150-450); RBC Distribution Width CV 12.6 % (11.6-14.6); RBC Distribution Width SD 43.1 fl (35.1-43.9); Red Blood Count 5.37 M/mm3 (4.6-6.2); White Blood Count 11.1 K/mm3 (4.4-11.0)
[2023-05-20 12:21] LABS: ALB/GLOB Ratio 1.1 RATIO (0.9-2.4); AST(SGOT) 11 U/L (15-37); Alanine Aminotransfer ALT/SGPT 23 U/L (16-61); Albumin, Serum 3.9 g/dL (3.2-5.0); Alkaline Phosphatase 111 U/L (45-117); Anion Gap 4 (5-15); BUN 11 mg/dL (7-18); BUN/Creat Ratio 10.6 RATIO (10-20); Calcium,Total 9.4 mg/dL (8.5-10.1); Chloride 106 mmol/L (98-107); Cholesterol 180 mg/dL (200); Creatinine, Serum 1.04 mg/dL (0.70-1.30); EST Glomerular Filtration Rate 77 mL/min (>60); Est Glom Filt Rate - Afr Amer 93 mL/min (>60); Globulin 3.6 g/dL (2.2-4.2); Glucose 151 mg/dL (74-106); High Density Lipoprotein 43 mg/dL; Potassium 4.5 mmol/L (3.5-5.1); Protein, Total 7.5 g/dL (6.4-8.2); Sodium Level 137 mmol/L (136-145); Thyroid Stim Hormone (TSH) 1.33 uIU/mL (0.358-3.74); Triglycerides 121 mg/dL; Very Low Density Lipoprotein 24 mg/dL (5-40)
[2023-05-20 12:31] LABS: Vitamin D,25 Hydroxy 65.6 ng/mL
== END | disposition home or self-care (01) ==
LOC: BIMLAB 09:56
PROVIDERS: PCP Internal Medicine; Visit Provider Internal Medicine
DX: Z13.220 Encounter for screening for lipoid disorders (principal); E11.9 Type 2 diabetes mellitus without complications; G47.33 Obstructive sleep apnea (adult) (pediatric); E78.5 Hyperlipidemia, unspecified; E55.9 Vitamin D deficiency, unspecified
CPT/HCPCS: 36415; 80053; 80061; 82306; 83036; 84443; 85025

== ENCOUNTER → 2023-11-25 | Outpatient (CLI) | payer MEDICAID, SELFPAY ==
[2023-11-25 14:18] LABS: Absolute Lymphocyte Count 2.69 X10^3/uL (0.83-4.51); Absolute Neutrophil Count 5.5 X10^3/uL (2.0-7.7); Basophil# 0.11 X10^3/uL; Basophil% 1.1 % (0-1); Eosinophil# 0.46 X10^3/uL; Eosinophils% 4.7 % (0-5); Hematocrit 50.6 % (40-54); Hemoglobin 16.4 g/dL (13.0-16.5); Lymphocyte # 2.69 X10^3/ul (0.83-4.51); Lymphocyte % 27.2 % (19-41); Mean Corp Hgb Conc 32.4 g/dL (32-36); Mean Corpuscular Hgb 29.8 pg (27.0-32.0); Mean Corpuscular Volume 91.8 fL (80-94); Mean Platelet Vol. 11.4 fl (6.2-12.0); Monocyte% 11.1 % (0-10); NRBC Flagged by Analyzer 0 % (0-5); Neutrophil % 55.6 % (47-70); Platelet Count 247 K/mm3 (150-450); RBC Distribution Width CV 12.4 % (11.6-14.6); RBC Distribution Width SD 42.1 fl (35.1-43.9); Red Blood Count 5.51 M/mm3 (4.6-6.2); White Blood Count 9.9 K/mm3 (4.4-11.0)
[2023-11-25 14:37] LABS: Vitamin D,25 Hydroxy 60.1 ng/mL
[2023-11-25 14:55] LABS: Hemoglobin A1c 7.8 % (3.8-5.6)
[2023-11-25 15:01] LABS: AST(SGOT) 22 U/L (15-37); Alanine Aminotransfer ALT/SGPT 27 U/L (16-61); Albumin, Serum 3.9 g/dL (3.2-5.0); Alkaline Phosphatase 137 U/L (45-117); Anion Gap 4 (5-15); BUN 15 mg/dL (7-18); BUN/Creat Ratio 13.5 RATIO (10-20); Calcium,Total 9.5 mg/dL (8.5-10.1); Chloride 103 mmol/L (98-107); Cholesterol 123 mg/dL (200); Creatinine, Serum 1.11 mg/dL (0.70-1.30); EST Glomerular Filtration Rate 71 mL/min (>60); Est Glom Filt Rate - Afr Amer 86 mL/min (>60); Free T3 2.6 pg/mL (2.18-3.98); Globulin 3.9 g/dL (2.2-4.2); Glucose 168 mg/dL (74-106); High Density Lipoprotein 46 mg/dL; PSA,Total - Annual Screen 0.78 ng/mL (0.00-4.00); Potassium 4.4 mmol/L (3.5-5.1); Protein, Total 7.8 g/dL (6.4-8.2); Sodium Level 136 mmol/L (136-145); T4 Free Direct 0.93 ng/dL (0.76-1.46); Triglycerides 85 mg/dL; Very Low Density Lipoprotein 17 mg/dL (5-40)
[2023-11-29 13:07] LABS: Alkaline Phosphatase, Serum 144 IU/L (44-121); Bone Fraction 22 % (12-68); Intestinal Fraction 2 % (0-18); Liver Fraction 75 % (13-88)
== END | disposition home or self-care (01) ==
LOC: BIMLAB 11:55
PROVIDERS: PCP Internal Medicine; Referring Provider Internal Medicine; Visit Provider Internal Medicine
DX: E11.9 Type 2 diabetes mellitus without complications (principal); G47.33 Obstructive sleep apnea (adult) (pediatric); E78.5 Hyperlipidemia, unspecified; R74.8 Abnormal levels of other serum enzymes; Z13.220 Encounter for screening for lipoid disorders; E55.9 Vitamin D deficiency, unspecified; Z12.5 Encounter for screening for malignant neoplasm of prostate
CPT/HCPCS: 36415; 80053; 80061; 82306; 83036; 84075; 84080; 84153; 84439; 84443; 84481; 85025; G0103

== ENCOUNTER → 2024-02-10 | Outpatient (CLI) | payer MEDICAID, SELFPAY ==
[2024-02-10 15:20] LABS: Absolute Lymphocyte Count 2.53 X10^3/uL (0.83-4.51); Absolute Neutrophil Count 3.8 X10^3/uL (2.0-7.7); Basophil# 0.08 X10^3/uL; Basophil% 1.1 % (0-1); Eosinophil# 0.25 X10^3/uL; Eosinophils% 3.4 % (0-5); Hematocrit 45.8 % (40-54); Hemoglobin 15.3 g/dL (13.0-16.5); Lymphocyte # 2.53 X10^3/ul (0.83-4.51); Lymphocyte % 34.4 % (19-41); Mean Corp Hgb Conc 33.4 g/dL (32-36); Mean Corpuscular Hgb 30.5 pg (27.0-32.0); Mean Corpuscular Volume 91.4 fL (80-94); Mean Platelet Vol. 11.1 fl (6.2-12.0); Monocyte# 0.72 X10^3/uL; Monocyte% 9.8 % (0-10); NRBC Flagged by Analyzer 0 % (0-5); Neutrophil # 3.76 X10^3/uL (2.7-7.7); Neutrophil % 51.2 % (47-70); Platelet Count 187 K/mm3 (150-450); RBC Distribution Width CV 12.8 % (11.6-14.6); RBC Distribution Width SD 42.5 fl (35.1-43.9); Red Blood Count 5.01 M/mm3 (4.6-6.2); White Blood Count 7.4 K/mm3 (4.4-11.0)
[2024-02-10 15:47] LABS: Hemoglobin A1c 7.4 % (3.8-5.6)
[2024-02-10 15:51] LABS: Vitamin D,25 Hydroxy 46.3 ng/mL
[2024-02-10 16:19] LABS: ALB/GLOB Ratio 1.1 RATIO (0.9-2.4); AST(SGOT) 16 U/L (15-37); Alanine Aminotransfer ALT/SGPT 25 U/L (16-61); Albumin, Serum 3.9 g/dL (3.2-5.0); Alkaline Phosphatase 110 U/L (45-117); Anion Gap 6 (5-15); BUN 17 mg/dL (7-18); BUN/Creat Ratio 17.5 RATIO (10-20); Calcium,Total 9.3 mg/dL (8.5-10.1); Chloride 104 mmol/L (98-107); Cholesterol 121 mg/dL (200); Creatinine, Serum 0.97 mg/dL (0.70-1.30); EST Glomerular Filtration Rate 83 mL/min (>60); Est Glom Filt Rate - Afr Amer 100 mL/min (>60); Globulin 3.5 g/dL (2.2-4.2); Glucose 214 mg/dL (74-106); High Density Lipoprotein 43 mg/dL; Potassium 4.2 mmol/L (3.5-5.1); Protein, Total 7.4 g/dL (6.4-8.2); Sodium Level 134 mmol/L (136-145); Thyroid Stim Hormone (TSH) 1.45 uIU/mL (0.358-3.74); Triglycerides 110 mg/dL; Very Low Density Lipoprotein 22 mg/dL (5-40)
== END | disposition home or self-care (01) ==
LOC: BIMLAB 14:02
PROVIDERS: PCP Internal Medicine; Referring Provider Internal Medicine; Visit Provider Internal Medicine
DX: E11.9 Type 2 diabetes mellitus without complications (principal); G47.33 Obstructive sleep apnea (adult) (pediatric); E78.5 Hyperlipidemia, unspecified; Z13.220 Encounter for screening for lipoid disorders; E55.9 Vitamin D deficiency, unspecified
CPT/HCPCS: 36415; 80053; 80061; 82306; 83036; 84443; 85025

== ENCOUNTER 2024-02-29 06:15 | Day surgery (SDC) | payer MEDICAID, SELFPAY ==
[2024-02-29] VITALS (8 sets, daily range): BP systolic 74–116; BP diastolic 47–80; PULSE 52–64; RESP 14–16; TEMP 36.2–36.4; O2SAT 95–96; BMI 27.4
[2024-02-29] MEDS: Lactated Ringers 1,000 ML 15 ML IV (06:39)
--- NOTE | 2024-02-29 06:55 | PRE.ANES_ITS ---
ASA Classification* ASA Classification ASA Classification: 2 Assessment & Plan Anesthesia* Anesthesia Assessment Anesthesia Assessment: Discussed sedation and/or anesthesia options, risks, benefits, and alternatives with patient/parents/legal guardian/POA. Questions invited. The patient/parents/legal guardian/POA seems to understand and agrees to proceed with anesthesia plan. Reviewed the physical assessment, medical history, allergy history and patient home medications list prior to surgery/procedure/anesthetic and documented any changes. Performed airway and anesthesia risk assessments. Anesthesia Type Anesthesia Type: MAC (see written pre anesthesia record for full assessment) Anesthesia Focused Assessment* Temperature: 97.2 F Pulse Rate: 64 Blood Pressure: 116/80 Respiratory Rate: 16 Pulse Ox: 96 Airway Assessment Mouth opens: >3 cm Mallampati Score: II Focused Labs Anesthesia Preop lab: CBC WBC 7.4 K/mm3 (4.4-11.0) 02/10/24 14:03 RBC 5.01 M/mm3 (4.6-6.2) 02/10/24 14:03 Hgb 15.3 g/dL (13.0-16.5) 02/10/24 14:03 Hct 45.8 % (40-54) 02/10/24 14:03 Plt Count 187 K/mm3 (150-450) 02/10/24 14:03 CHEMISTRY Potassium 4.2 mmol/L (3.5-5.1) 02/10/24 14:03 Sodium 134 mmol/L (136-145) L 02/10/24 14:03 Magnesium 2.6 mg/dL (1.6-2.6) 11/18/21 10:37 BUN 17 mg/dL (7-18) 02/10/24 14:03 Creatinine 0.97 mg/dL (0.70-1.30) 02/10/24 14:03 Glucose 214 mg/dL (74-106) H 02/10/24 14:03 POC Glucose 143 mg/dL (74-106) H 10/26/22 12:07 TSH 1.45 uIU/mL (0.358-3.74) 02/10/24 14:03 COAG PT 12.8 SECONDS (11.9-14.4) 06/28/13 16:16 Pre-Assessment Diagnosis/Proposed Procedure Planned Operative Procedure(s): COLONOSCOPY-OA Anesthesia History 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 When Was Last Pacemaker Check QUESTION #4 FULL TEXT: You/Your Family Experience fever (hyperthermia) with Anesthesia Last Oral Intake Last Oral intake: Last Oral Intake NPO since Meds taken in AM with sips of water? Meds patient instructed to take am of surgery PONV PONV - fountain roller assembler: PONV - fountain roller assembler Female No 02/22/24 11:54 HX of Motion Sickness No 02/22/24 11:54 HX of N/V After Surgery No 02/22/24 11:54 Non-Smoker Yes 02/22/24 11:54 Duration of Surgery greater No 02/22/24 11:54 than 60 minutes Number of Risk Factors 1 02/22/24 11:54 PONV Score Low Risk 02/22/24 11:54 Height & Weight Height & Weight: Anesthesia: Height & Weight Height 5 ft 11 in 02/29/24 06:31 Weight: 89.4 kg 02/29/24 06:31 Body Mass Index (BMI) 27.4 02/29/24 06:31 Respiratory Assessment Respiratory Assessment - fountain roller assembler: Respiratory Tract Infection Hx - fountain roller assembler Hx Respiratory Tract Infection No 02/22/24 11:54 STOP Sleep Apnea STOP Sleep Apnea - fountain roller assembler: STOP Sleep Apnea - fountain roller assembler Hx Hypertension No 02/22/24 11:54 Hx Sleep Apnea Yes 02/22/24 11:54 CPAP Yes 02/22/24 11:54 BIPAP No 02/22/24 11:54 Do you snore loudly (louder than talking or can be heard Do you often feel tired/ fatigued/ sleepy during daytime? Has anyone observed you stop breathing during sleep? STOP Results Positive 02/22/24 11:54 QUESTION #5 FULL TEXT : Do you snore loudly (louder than talking or can be heard through closed doors)? 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 Specify any problems Hx of Preganancy in last 3 N/A 02/22/24 11:54 Months Nurse Filling Out Transfusion VCHRISTIN 02/22/24 11:54 & Questions: Date: 02/22/24 02/22/24 11:54 Time: 11:55 02/22/24 11:54 Patient unable to answer at this time (ie. confused, unrespo /Reproduction History /Reproductive History - fountain roller assembler: /Reproductive Hx- fountain roller assembler Hx Now Gestational Age (in weeks): EDC: Hx Hx Para Hx Section SAB Active Medications Active Medications: Current Medications Generic Name Dose Route Start Last Admin Trade Name Freq PRN Reason Stop Dose Admin Lactated Ringer's 1,000 mls @ 15 mls/hr 02/29/24 06:30 02/29/24 06:39 IV 15 mls/hr .Q48H BASIL Administration PFSH Medical History Personal history of colonic polyps Insulin dependent diabetes mellitus High cholesterol Normal stress echocardiogram Hypertension Cardiology follow-up encounter Wears glasses MRSA infection Diabetes History of diverticulitis Former smoker CPAP (continuous positive airway pressure) dependence Sleep apnea Erectile dysfunction Vision impairment GERD (gastroesophageal reflux disease) IBS (irritable bowel syndrome) Diabetes type 2, controlled Home Medications ?Medication ?Instructions ?Recorded ?Last Taken ?Type multivit with minerals-folic 1 tab PO DAILY 09/14/17 Unknown History acid-lycopene 0.4 mg-600 mcg tablet (Men's Daily Multivitamin-Mineral) omega-3 fatty acids 1,000 mg 1,200 mg PO QDAY 09/14/17 03/17/19 History capsule (Fish Oil Concentrate) cholecalciferol (vitamin D3) 50 2,000 unit PO DAILY 02/08/19 Unknown History mcg (2,000 unit) tablet atorvastatin 40 mg tablet 40 mg PO QHS #90 tabs 11/18/23 Unknown Rx dapagliflozin propanediol 5 mg 5 mg PO DAILY #90 tabs 11/18/23 Unknown Rx tablet (Farxiga) insulin NPH isoph U-100 human 100 16 unit (0.16 mL) subcut BID #10 mL 11/18/23 Unknown Rx unit/mL subcutaneous suspension (Novolin N NPH U-100 Insulin isophane) lisinopril 2.5 mg tablet 2.5 mg PO DAILY #90 tabs 11/18/23 Unknown Rx blood sugar diagnostic (OneTouch #100 ea 02/09/24 Unknown Rx Verio test strips) fluorometholone 0.1 % eye 1 drp ophthalmic (eye) DAILY 02/22/24 Unknown History drops,suspension povidone (PF) 0.5 % eye gel in a 1 drp ophthalmic (eye) DAILY 02/22/24 Unknown History dropperette (iVizia (PF)) Allergy/AdvReac Type Severity Reaction Status Date / Time metformin Allergy Severe Diarrhea Verified 02/29/24 06:31 Family History Unknown No problems noted. Father Diabetes CVA (cerebral vascular accident) Mother Diabetes Sister Breast cancer Grandfather Diabetes Grandmother Diabetes Brother Kidney disease Surgical History Hx of surgical procedure History of colonoscopy endoscopy with dilation of esophagus Social History household members: spouse current occupational status: retired Smoking Status: Former smoker quit date: 10/20/20 pack-years: 10 second hand exposure: No alcohol intake: never substance use type: does not use caffeine: Yes (2-3/day) Type: carbonated beverages, coffee and tea Review of Systems (Anesthesia) ROS Narrative System reviewed and no additional complaints, except as documented.
[2024-02-29 06:58] LABS: Bedside Glucose 186 mg/dL (74-106)
--- NOTE | 2024-02-29 07:16 | H&P.OPEN ---
HPI - General HPI Narrative MELISSA MORFIN, is a 63 M who presents for surveillance colonoscopy. Patient has last colonoscopy 5 years ago and a polyp was removed. It came back as a tubular adenoma. He denies any abdominal pain or blood in the stool since his last colonoscopy. [facility] Medical History (Updated 02/29/24 @ 07:[address] Alessandro French MD) Personal history of colonic polyps Insulin dependent diabetes mellitus High cholesterol Normal stress echocardiogram Hypertension Cardiology follow-up encounter Wears glasses MRSA infection Diabetes History of diverticulitis Former smoker CPAP (continuous positive airway pressure) dependence Sleep apnea Erectile dysfunction Vision impairment GERD (gastroesophageal reflux disease) IBS (irritable bowel syndrome) Diabetes type 2, controlled Home Medications ?Medication ?Instructions ?Recorded ?Last Taken ?Type multivit with minerals-folic 1 tab PO DAILY 09/14/17 Unknown History acid-lycopene 0.4 mg-600 mcg tablet (Men's Daily Multivitamin-Mineral) omega-3 fatty acids 1,000 mg 1,200 mg PO QDAY 09/14/17 03/17/19 History capsule (Fish Oil Concentrate) cholecalciferol (vitamin D3) 50 2,000 unit PO DAILY 02/08/19 Unknown History mcg (2,000 unit) tablet atorvastatin 40 mg tablet 40 mg PO QHS #90 tabs 11/18/23 Unknown Rx dapagliflozin propanediol 5 mg 5 mg PO DAILY #90 tabs 11/18/23 Unknown Rx tablet (Farxiga) insulin NPH isoph U-100 human 100 16 unit (0.16 mL) subcut BID #10 mL 11/18/23 Unknown Rx unit/mL subcutaneous suspension (Novolin N NPH U-100 Insulin isophane) lisinopril 2.5 mg tablet 2.5 mg PO DAILY #90 tabs 11/18/23 Unknown Rx blood sugar diagnostic (OneTouch #100 ea 02/09/24 Unknown Rx Verio test strips) fluorometholone 0.1 % eye 1 drp ophthalmic (eye) DAILY 02/22/24 Unknown History drops,suspension povidone (PF) 0.5 % eye gel in a 1 drp ophthalmic (eye) DAILY 02/22/24 Unknown History dropperette (iVizia (PF)) Allergy/AdvReac Type Severity Reaction Status Date / Time metformin Allergy Severe Diarrhea Verified 02/29/24 06:31 Family History Unknown No problems noted. Father Diabetes CVA (cerebral vascular accident) Mother Diabetes Sister Breast cancer Grandfather Diabetes Grandmother Diabetes Brother Kidney disease Surgical History Hx of surgical procedure History of colonoscopy endoscopy with dilation of esophagus Social History household members: spouse current occupational status: retired Smoking Status: Former smoker quit date: 10/20/20 pack-years: 10 second hand exposure: No alcohol intake: never substance use type: does not use caffeine: Yes (2-3/day) Type: carbonated beverages, coffee and tea Past Medical/Surgical History Planned Operation Planned Operative Procedure(s): COLONOSCOPY-OA S.O.S: No Previous Hospitalizations/Surgeries HX Hospitalizations: No Any Problems With Anesthesia: No You/Your Family Experience Fever (Hyperthermia) With Anes: No Cholinesterase deficiency: No Cardiovascular Hx Chest Pain within Last 2 months: No Hx of Irregular Heartbeat and/or Afib: No Hx Heart Attack: No Hx Congestive Heart Failure: No Hx Rheumatic Fever: No Hx Hypertension: No Hx Internal Defibrillator: No Hx Pacemaker: No Hx Cardiac Catheterization: No Hx Cardiac Surgery/Stents/Etc.: No Hx Stress Test: No Hx Pain in Legs when Walking/Leg Cramps: No Respiratory Chronic Cough: No HX of Shortness of Breath: No Hoarseness: No Hx Chronic Obstructive Pulmonary Disease (COPD): No Hx Asthma: No Hx Emphysema: No Hx Sleep Apnea: Yes CPAP: Yes BIPAP: No Hx Respiratory Tract Infection/Cold (presently): No Result (for STOP score): Positive Hx Smoking: Yes (SMOKES A PIPE OCC,) Smoking Status: Former smoker Gastrointestinal Controlled With Meds: Yes (PRILOSEC) Hx Gastrointestinal Disorders: Yes (IBS) Hx Gastrointestinal Bleed: No Hx Ulcer: No Hx Hiatal Hernia: No Difficulty Chewing/Swallowing: No Special diet followed at home: No Hx Unplanned Weight Loss of 20#: No HX Unplanned Weight Gain of 20#: No Neurological Hx Seizures: No HX Syncope/Blackout Spells/Unconsciousness: No Hx Transient Ischemic Attacks (TIA): No Hx Multiple Sclerosis: No Hx Parkinson's Disease: No Hx Head/Neck Injury: No Hx Headaches: No Hx Back Injury/Pain: No Recent Onset of Speech Difficulty: No Restless Legs: No Does patient have nerve stimulator: No Blood Disorder Hx Leukemia: No Bleeding Tendencies: No Hx Deep Vein Thrombosis: No Hx High Cholesterol: Yes (ON MEDICATION) Blood Transmitted Disease: No Hx Hepatitis: No Hx Cirrhosis: No Hx Anemia: No Hx Blood Disorders: No Genitourinary Hx Renal Disease: No Musculoskeletal Hx Arthritis: No Hx Rheumatoid Arthritis: No Hx Gout: No Recent Onset of an Orthopedic Problem: No Endocrine Hx Diabetes: Yes Insulin: Yes Thyroid Disease: No Hx Steroid Therapy: Yes (INJECTION IN SHOULDER W/IN LAST YEAR) Psycho/Social Hx Substance Use: No Hx Alcohol Use: No Hx Anxiety: No Hx Depression: No Mental Illness: No Hx Dementia: No Miscellaneous Hx Cancer: No Recent Exposure to Contagious Disease: No Hx of C-Diff: No Any Loose Teeth: No Allergies metformin Allergy (Severe, Verified 02/29/24 06:31) Diarrhea Discharge Is Pt Admitted From a [facility], or a Custodial: No After D/C, Where Do you Plan to Go: Return Home From the PAT History Number of Risk Factors: 1 Vital Signs Vital Signs Vital Signs: 02/29/24 06:31 02/29/24 06:31 02/29/24 06:56 Temperature 97.2 F L 97.2 F L Temperature Source Temporal Pulse Rate 64 64 Respiratory Rate 16 16 Respiratory Pattern Normal Blood Pressure 116/80 116/80 Blood Pressure Mean 92 Blood Pressure Source Monitor Blood Pressure Position Semi-Fowlers Blood Pressure Location Left Arm Pulse Ox 96 96 Oxygen Delivery Method Room Air Weight Weight: 197 lb 1.492 oz Body Mass Index (BMI) 27.4 Physical Exam Const alert and oriented x3 HEENT normocephalic Eyes PERRL Resp normal respiratory effort and normal air movement Cardio regular rate and regular rhythm GI soft to palpation, non-tender and non-distended Extremity normal to inspection Assessment & Plan Assessment/Plan (1) Personal history of colonic polyps: PLAN: I explained endoscopy in detail to the patient. I explained the risks including but not limited to stroke or heart attack with anesthesia, perforation of the GI tract, bleeding, infection. I explained that any of these could necessitate further emergency surgery. The patient understands and all questions were answered sufficiently. The patient wishes to proceed with procedure. Alessandro French MD Pager: [facility] [address] [place] [address] [address] [place] [address] Office: Surgery Risks - Colonoscopy Risks Include but are not Limited To: Risks include but are not limited to: Bleeding, perforation requiring further surgery, inability to complete colonoscopy requiring barium enema.
--- NOTE | 2024-02-29 07:51 | OP.COLON_ITS ---
Patient Name: Jeff Sanchez Procedure Date: 02/29/2024 7:15 AM Date of : 1960 Age: 63 Procedure: Colonoscopy Indications: High risk colon cancer surveillance: Personal history of colonic polyps Providers: Alessandro French MD Medicines: Propofol per Anesthesia Patient Profile: This is a 63 year old male. Refer to note in patient chart for documentation of history and physical. Last Colonoscopy: 5 years ago. Complications: No immediate complications. Procedure: Pre-Anesthesia Assessment: - Prior to the procedure, a History and Physical was performed, and patient medications and allergies were reviewed. The patient's tolerance of previous anesthesia was also reviewed. The risks and benefits of the procedure and the sedation options and risks were discussed with the patient. All questions were answered, and informed consent was obtained. Prior Anticoagulants: The patient has taken no anticoagulant or antiplatelet agents. After reviewing the risks and benefits, the patient was deemed in satisfactory condition to undergo the procedure. After I obtained informed consent, the scope was passed under direct vision. Throughout the procedure, the patient's blood pressure, pulse, and oxygen saturations were monitored continuously. The pediatric colonoscope was introduced through the anus and advanced to the cecum, identified by appendiceal orifice and ileocecal valve. The colonoscopy was performed without difficulty. The patient tolerated the procedure well. The quality of the bowel preparation was good. The ileocecal valve, appendiceal orifice, and rectum were photographed. Scope In: 7:29:44 AM Scope Withdrawal Time 0 hours 9 minutes 49 seconds Scope Out: 7:46:02 AM Total Procedure Duration Time 0 hours 16 minutes 18 seconds Findings: The entire examined colon appeared normal on direct and retroflexion views. Impression: - The entire examined colon is normal on direct and retroflexion views. - No specimens collected. Recommendation: - Discharge patient to home. - Resume previous diet. - Continue present medications. - Repeat colonoscopy in 10 years for screening purposes. Procedure Code(s): --- Professional --- 86069, Colonoscopy, flexible; diagnostic, including collection of specimen(s) by brushing or washing, when performed (separate procedure) Diagnosis Code(s): --- Professional --- Z86.010, Personal history of colonic polyps CPT copyright 2021 [employer]. All rights reserved. The codes documented in this report are preliminary and upon brim plater review may be revised to meet current compliance requirements. Alessandro French MD 02/29/2024 7:50:13 AM This report has been signed electronically. Number of Addenda: 0 Note Initiated On: 02/29/2024 7:15 AM
--- NOTE | 2024-02-29 07:51 | OP.CCLET_ITS ---
02/29/2024 Ellen Staples [facility] [address] [place] [address] Re : Colonoscopy procedure for Jeff Sanchez Dear Dr. Staples This procedure was performed on Thursday, February 29, 2024. My impressions and recommendations are as follows: Impressions : - The entire examined colon is normal on direct and retroflexion views. - No specimens collected. Recommendations : - Discharge patient to home. - Resume previous diet. - Continue present medications. - Repeat colonoscopy in 10 years for screening purposes. My findings are described in the full procedure note, which is enclosed. If I can be of further assistance, please feel free to contact me at Doctor phone number(s): , Work: . Sincerely, Alessandro French MD 02/29/2024 7:50:13 AM This report has been signed electronically.
--- NOTE | 2024-02-29 07:55 | PCM.POST.ANE ---
Anesthesia: Postop Eval I Current Vital Signs Temperature: 97.5 F Pulse Rate: 58 Blood Pressure: 81/50 Respiratory Rate: 14 Pulse Ox: 95 Oxygen Delivery Method: Room Air Assessment Airway patent: Yes Spontaneous unlabored respirations: Yes Mental status: Awake and Calm nausea: No Vomiting: No Anesthesia Complication: No Fluid Hydration Crystalloid volume administer (ml): 600 Total IV fluid infused: 600 Progress Note Anesthesia document: Postop Eval 1 completed: Yes
--- NOTE | 2024-02-29 08:52 | POSTOPAN2_ITS ---
Anesthesia Postop Eval I Sum Postop Eval Completion status Anesthesia document: Postop Eval 1 completed: Yes Anesthesia Postop Eval I Summary Anesthesia Postop Eval I Summary: Anesthesia Postop Eval I: Assessment Summary Airway patent Yes 02/29/24 07:56 [email or web address] Spontaneous unlabored Yes 02/29/24 07:56 PICTURE [email or web address].[email or web address] respirations Mental status Awake,Calm 02/29/24 07:56 PICTURE [email or web address].[email or web address] nausea No 02/29/24 07:56 PICTURE [email or web address].GDOTT Vomiting No 02/29/24 07:56 PICTURE [email or web address].[email or web address] Anesthesia Postop Eval I: Fluid Summary Crystalloid volume administer 600 02/29/24 07:56 PICTURE [email or web address].GDOTT (ml) Colloids volume administered ( ml) Blood Product volume administered (ml) Total IV fluid infused 600 02/29/24 07:56 PICTURE [email or web address].GDOTT Anesthesia Postop Eval I: Summary Notes Anesthesia Complication No 02/29/24 07:56 PICTURE [email or web address].[email or web address] Anesthesia Complication Comment: Post-operative progress note Anesthesia: Postop Eval II Evaluation Mental status: Awake Pain Level: 0 nausea: No Vomiting: No
--- NOTE | 2024-02-29 08:52 | PCM.POSTANE2 ---
Anesthesia Postop Eval I Sum Postop Eval Completion status Anesthesia document: Postop Eval 1 completed: Yes Anesthesia Postop Eval I Summary Anesthesia Postop Eval I Summary: Anesthesia Postop Eval I: Assessment Summary Airway patent Yes 02/29/24 07:56 [email or web address].[email or web address] Spontaneous unlabored Yes 02/29/24 07:56 SERVICE PLANNER.GDOTT respirations Mental status Awake,Calm 02/29/24 07:56 SERVICE PLANNER.GDOTT nausea No 02/29/24 07:56 SERVICE PLANNER.GDOTT Vomiting No 02/29/24 07:56 SERVICE PLANNER.GDOTT Anesthesia Postop Eval I: Fluid Summary Crystalloid volume administer 600 02/29/24 07:56 SERVICE [email or web address].GDOTT (ml) Colloids volume administered ( ml) Blood Product volume administered (ml) Total IV fluid infused 600 02/29/24 07:56 SERVICE PLANNER.GDOTT Anesthesia Postop Eval I: Summary Notes Anesthesia Complication No 02/29/24 07:56 SERVICE PLANNER.GDOTT Anesthesia Complication Comment: Post-operative progress note Anesthesia: Postop Eval II Evaluation Mental status: Awake Pain Level: 0 nausea: No Vomiting: No
== END 2024-02-29 08:35 | disposition home or self-care (01) ==
LOC: EN 06:15 → AC 06:18
PROVIDERS: PCP Internal Medicine; Referring Provider Internal Medicine; Visit Provider Surgery
PROC: 0DJD8ZZ Inspection of Lower Intestinal Tract, Via Natural or Artificial Opening Endoscopic (ICD-10-PCS; CPT 45378; principal; 2024-02-29 07:25)
DX: Z12.11 Encounter for screening for malignant neoplasm of colon (principal); E11.9 Type 2 diabetes mellitus without complications; Z87.891 Personal history of nicotine dependence; E78.00 Pure hypercholesterolemia, unspecified; Z86.010 Personal history of colon polyps; Z79.84 Long term (current) use of oral hypoglycemic drugs; I10 Essential (primary) hypertension; K21.9 Gastro-esophageal reflux disease without esophagitis; Z79.899 Other long term (current) drug therapy
CPT/HCPCS: 45378; 82962; J7120

== ENCOUNTER → 2024-11-21 | Outpatient (CLI) | payer MEDICAID, SELFPAY ==
[2024-11-21 15:37] LABS: Absolute Lymphocyte Count 2.41 X10^3/uL (0.83-4.51); Absolute Neutrophil Count 4.9 X10^3/uL (2.0-7.7); Basophil# 0.08 X10^3/uL; Eosinophil# 0.17 X10^3/uL; Eosinophils% 2.1 % (0-5); Hematocrit 49.1 % (40-54); Hemoglobin 16.7 g/dL (13.0-16.5); Lymphocyte # 2.41 X10^3/ul (0.83-4.51); Lymphocyte % 29.3 % (19-41); Mean Corpuscular Hgb 30.9 pg (27.0-32.0); Mean Corpuscular Volume 90.8 fL (80-94); Monocyte# 0.64 X10^3/uL; Monocyte% 7.8 % (0-10); NRBC Flagged by Analyzer 0 % (0-5); Neutrophil # 4.91 X10^3/uL (2.7-7.7); Neutrophil % 59.6 % (47-70); Platelet Count 229 K/mm3 (150-450); RBC Distribution Width CV 12.4 % (11.6-14.6); RBC Distribution Width SD 41.4 fl (35.1-43.9); Red Blood Count 5.41 M/mm3 (4.6-6.2); White Blood Count 8.2 K/mm3 (4.4-11.0)
[2024-11-21 17:29] LABS: ALB/GLOB Ratio 1.5 RATIO (0.9-2.4); AST(SGOT) 19 U/L (<=37); Alanine Aminotransfer ALT/SGPT 20 U/L (<=46); Albumin, Serum 4.5 g/dL (3.4-4.8); Alkaline Phosphatase 120 U/L (40-129); Anion Gap 11 (5-15); BUN 11 mg/dL (4-19); BUN/Creat Ratio 10.6 RATIO (10-20); Carbon Dioxide 24.3 mmol/L (21.0-32.0); Chloride 101 mmol/L (98-108); Cholesterol 128 mg/dL (<=200); Creatinine, Serum 1.07 mg/dL (0.70-1.20); EST Glomerular Filtration Rate 77 (>60); Free T3 2.8 pg/mL (2.18-3.98); Glucose 172 mg/dL (70-99); High Density Lipoprotein 45 mg/dL; Low Density Lipoprotein Calc. 68 mg/dL; Magnesium 2.4 mg/dL (1.5-2.2); Potassium 5.2 mmol/L (3.3-5.1); Protein, Total 7.5 g/dL (5.9-8.4); Sodium Level 137 mmol/L (133-145); Total Bilirubin 0.67 mg/dL (0.00-1.30); Triglycerides 74 mg/dL; Very Low Density Lipoprotein 15 mg/dL (5-40); Vitamin B12 652 pg/mL (180-914); cholesterol:hdl ratio screen 2.85
[2024-11-21 17:33] LABS: Hemoglobin A1c 8.8 % (<=5.6)
== END | disposition home or self-care (01) ==
LOC: BIMLAB 12:08
PROVIDERS: PCP Internal Medicine; Referring Provider Internal Medicine; Visit Provider Internal Medicine
DX: E78.5 Hyperlipidemia, unspecified (principal); E11.9 Type 2 diabetes mellitus without complications; G47.33 Obstructive sleep apnea (adult) (pediatric); Z13.220 Encounter for screening for lipoid disorders; E55.9 Vitamin D deficiency, unspecified; E53.8 Deficiency of other specified B group vitamins
CPT/HCPCS: 36415; 80053; 80061; 82306; 82607; 83036; 83735; 84439; 84443; 84481; 85025

== ENCOUNTER → 2025-05-15 | Outpatient (CLI) | payer MEDICAID, SELFPAY | END | disposition home or self-care (01) | LOC: SL 09:55 | PROVIDERS: PCP Internal Medicine; Referring Provider Nurse Practitioner Acute Care; Visit Provider Nurse Practitioner Acute Care | DX: G47.33 Obstructive sleep apnea (adult) (pediatric) (principal) | CPT/HCPCS: 95806 ==

== ENCOUNTER → 2025-06-20 | Outpatient (CLI) | payer MEDICARE, SELFPAY ==
[2025-06-20 13:16] LABS: Hematocrit 46.7 % (40-54); Hemoglobin 15.7 g/dL (13.0-16.5); Immature Granulocytes Count 0.030 X10^3/uL (0.0-0.0); Mean Corp Hgb Conc 33.6 g/dL (32-36); Mean Corpuscular Volume 91.6 fL (80-94); Mean Platelet Vol. 11.2 fl (6.2-12.0); NRBC Flagged by Analyzer 0 % (0-5); Platelet Count 229 K/mm3 (150-450); RBC Distribution Width CV 12.1 % (11.6-14.6); RBC Distribution Width SD 41.0 fl (35.1-43.9); Red Blood Count 5.10 M/mm3 (4.6-6.2); White Blood Count 8.8 K/mm3 (4.4-11.0)
[2025-06-20 14:07] LABS: AST(SGOT) 19 U/L (<=37); Alanine Aminotransfer ALT/SGPT 20 U/L (<=46); Albumin, Serum 4.5 g/dL (3.4-4.8); Alkaline Phosphatase 116 U/L (40-129); Anion Gap 10 (5-15); BUN 13 mg/dL (4-19); BUN/Creat Ratio 13.3 RATIO (10-20); Calcium,Total 9.6 mg/dL (7.6-11.0); Carbon Dioxide 27.2 mmol/L (21.0-32.0); Chloride 101 mmol/L (98-108); Cholesterol 150 mg/dL (<=200); Globulin 2.8 g/dL (2.2-4.2); Glucose 147 mg/dL (70-99); Low Density Lipoprotein Calc. 87 mg/dL; Magnesium 2.5 mg/dL (1.5-2.2); PSA,Total - Annual Screen 1.50 ng/mL (0.02-4.00); Potassium 4.5 mmol/L (3.3-5.1); Triglycerides 84 mg/dL; Very Low Density Lipoprotein 17 mg/dL (5-40); Vitamin D,25 Hydroxy 27.6 ng/mL (30-100); cholesterol:hdl ratio screen 3.21
== END | disposition home or self-care (01) ==
PROVIDERS: PCP Internal Medicine; Referring Provider Internal Medicine; Visit Provider Internal Medicine
DX: I10 Essential (primary) hypertension (principal); E11.9 Type 2 diabetes mellitus without complications; E78.5 Hyperlipidemia, unspecified; G47.33 Obstructive sleep apnea (adult) (pediatric); Z68.28 Body mass index [BMI] 28.0-28.9, adult; Z12.5 Encounter for screening for malignant neoplasm of prostate; E55.9 Vitamin D deficiency, unspecified
CPT/HCPCS: 36415; 80053; 80061; 82306; 83036; 83735; 84153; 85025; G0103